=== PATIENT | female | born 1990 | race Caucasian/White ===

== ENCOUNTER 2023-01-02 19:36 | Emergency (ER) | payer OTHER ==
[2023-01-02] MEDS ORDERED: SODIUM CHLORIDE 0.9% 1,000 ML IV STA ×2 (19:57)
[2023-01-02] MEDS ORDERED: SODIUM CHLORIDE 0.9% 500 ML 500 ML IV STA (19:57)
--- NOTE | 2023-01-02 19:58 | ED ---
Weakness HPI - General Chief complaint: Weakness Stated complaint: Altered Mental Status, Overdose Time Seen by Provider: 01/02/23 19:48 Source: patient, EMS, RN notes reviewed, old records reviewed Mode of arrival: EMS Limitations: no limitations - History of Present Illness Initial comments: This is a 32-year-old female to the emergency department today. She presents today for evaluation regards to low heart rate. Persistent bradycardia here in the ER. Patient is bradycardic here in the ER does admit to taking significant, Klonopin prior to arrival. Patient went to check him to [place] for rehabilitation and was noted to low heart rate for admission. Patient is not homicidal or suicidal. Patient was sent to ER from [place] for evaluation MD Complaint: generalized weakness (Bradycardia), lack of energy (Patient did take Klonopin) Location: generalized Severity: moderate Severity scale (1-10): 6 Consistency: constant Improves with: none Context: history of similar Associated Symptoms: denies other symptoms - Related Data Home Medications Medication Instructions Recorded Confirmed Buprenorphine/Naloxone 8Mg/2Mg 1 film SL BID 01/02/23 01/02/23 [Suboxone 8-2Mg Film] cloNIDine HCL 0.2 mg PO TID 01/02/23 01/02/23 clonazePAM [Klonopin ODT] 0.25 mg PO DAILY PRN 01/02/23 01/02/23 Allergies Allergy/AdvReac Type Severity Reaction Status Date / Time No Known Allergies Allergy Verified 01/02/23 21:46 Review of Systems ROS Statement: Those systems with pertinent positive or pertinent negative responses have been documented in the HPI. ROS Other: All systems not noted in ROS Statement are negative. Past Medical History Past Medical History: Hypertension Smoking Status: Current every day smoker Past Alcohol Use History: None Reported Past Drug Use History: None Reported General Exam Limitations: no limitations General appearance: alert, in no apparent distress Head exam: Present: atraumatic, normocephalic, normal inspection Eye exam: Present: normal appearance, PERRL, EOMI. Absent: scleral icterus, conjunctival injection, periorbital swelling ENT exam: Present: normal exam, mucous membranes moist Neck exam: Present: normal inspection. Absent: tenderness, meningismus, lymphadenopathy Respiratory exam: Present: normal lung sounds bilaterally. Absent: respiratory distress, wheezes, rales, rhonchi, stridor Cardiovascular Exam: Present: regular rate, normal rhythm, normal heart sounds. Absent: systolic murmur, diastolic murmur, rubs, gallop, clicks GI/Abdominal exam: Present: soft, normal bowel sounds. Absent: distended, tenderness, guarding, rebound, rigid Extremities exam: Present: normal inspection, full ROM, normal capillary refill. Absent: tenderness, pedal edema, joint swelling, calf tenderness Back exam: Present: normal inspection Neurological exam: Present: alert, oriented X3, CN II-XII intact Psychiatric exam: Present: normal affect, normal mood Skin exam: Present: warm, dry, intact, normal color. Absent: rash Course Vital Signs 01/02/23 01/02/23 01/02/23 19:39 20:11 20:20 Temperature 97.2 F L Pulse Rate 38 L 40 L 45 L Respiratory 16 Rate Blood Pressure 135/87 135/87 138/102 O2 Sat by Pulse 100 96 98 Oximetry 01/02/23 01/02/23 01/02/23 20:51 20:55 21:00 Temperature Pulse Rate 41 L 40 L Respiratory 16 16 Rate Blood Pressure 143/88 143/88 O2 Sat by Pulse 98 99 Oximetry 01/02/23 01/02/23 01/02/23 21:20 21:40 21:58 Temperature Pulse Rate 36 L 44 L 40 L Respiratory 18 Rate Blood Pressure 170/102 179/118 170/118 O2 Sat by Pulse 100 100 100 Oximetry 01/02/23 01/02/23 01/02/23 22:00 22:20 22:40 Temperature Pulse Rate 39 L 40 L Respiratory Rate Blood Pressure 159/114 171/104 152/96 O2 Sat by Pulse 99 97 98 Oximetry 01/02/23 01/02/23 01/02/23 23:00 23:20 23:40 Temperature Pulse Rate 42 L 42 L 44 L Respiratory Rate Blood Pressure 145/91 139/90 138/87 O2 Sat by Pulse 96 96 96 Oximetry 01/03/23 01/03/23 01/03/23 00:00 00:15 00:20 Temperature Pulse Rate 44 L 47 L 53 L Respiratory Rate Blood Pressure 141/104 138/92 139/94 O2 Sat by Pulse 96 95 Oximetry 01/03/23 01/03/23 01/03/23 00:40 01:00 01:20 Temperature Pulse Rate 54 L 61 60 Respiratory Rate Blood Pressure 145/88 149/103 155/104 O2 Sat by Pulse 95 94 L 94 L Oximetry 01/03/23 01/03/23 01/03/23 01:40 02:00 02:20 Temperature Pulse Rate 60 66 60 Respiratory Rate Blood Pressure 153/105 158/110 169/113 O2 Sat by Pulse 95 95 95 Oximetry 01/03/23 01/03/23 01/03/23 02:40 03:00 04:40 Temperature Pulse Rate 61 65 61 Respiratory 14 Rate Blood Pressure 166/113 173/115 145/102 O2 Sat by Pulse 95 95 95 Oximetry 01/03/23 01/03/23 01/03/23 05:27 08:21 09:50 Temperature 97.5 F L Pulse Rate 65 77 70 Respiratory 16 16 16 Rate Blood Pressure 131/92 127/87 111/82 O2 Sat by Pulse 96 98 97 Oximetry - Reevaluation(s) Reevaluation #1: 01/02/23 21:44 Medical record is reviewed Reevaluation #2: 01/02/23 21:44 Patient has no change in improvement of Narcan Reevaluation #3: 01/02/23 21:44 We will allow patient to arouse here in the emergency room, she remains not homicidal or suicidal but is improving and waking up Reevaluation #4: 01/02/23 21:44 Was pt. sent in by a medical professional or institution (, PA, LEAD SETTER, urgent care, hospital, or penitentiary...) When possible be specific @ -no Did you speak to anyone other than the patient for history (EMS, parent, family, police, friend...)? What history was obtained from this source @ -no Did you review nursing and triage notes (agree or disagree)? Why? @ -agree Are old charts reviewed (outside hosp., previous admission, EMS record, old EKG, old radiological studies, urgent care reports/EKG's, penitentiary records)? Report findings @ -yes Differential Diagnosis (chest pain, altered mental status, abdominal pain women, abdominal pain men, vaginal bleeding, weakness, fever, dyspnea, syncope, headache, dizziness, GI bleed, back pain, seizure, CVA, palpatations, mental health, musculoskeletal)? @ -prior EKG interpreted by me (3pts min.). @ -yes X-rays interpreted by me (1pt min.). @ -no CT interpreted by me (1pt min.). @ -no U/S interpreted by me (1pt. min.). @ -no What testing was considered but not performed or refused? (CT, X-rays, U/S, labs)? Why? @ -none What meds were considered but not given or refused? Why? @ -none Did you discuss the management of the patient with other professionals (professionals i.e. , PA, LEAD SETTER, lab, RT, psych nurse, adoption social worker, transportation associate, teacher, aoc director combat plans officer, transplant case manager)? Give summary @ -no Was smoking cessation discussed for >3mins.? @ -no Was critical care preformed (if so, how long)? @ -no Were there social determinants of health that impacted care today? How? (Homelessness, low income, unemployed, alcoholism, drug addiction, transportation, low edu. Level, literacy, decrease access to med. care, longterm, rehab)? @ -none Was there de-escalation of care discussed even if they declined (Discuss DNR or withdrawal of care, Hospice)? DNR status @ -no What co-morbidities impacted this encounter? (DM, HTN, Smoking, COPD, CAD, Cancer, CVA, ARF, Chemo, Hep., AIDS, mental health diagnosis, sleep apnea, morbid obesity)? @ -none Was patient admitted / discharged? Hospital course, mention meds given and route, prescriptions, significant lab abnormalities, going to OR and other pertinent info. @ - 32 female to the emergency department for evaluation. Patient resents today for evaluation of taking too much Klonopin, accidental overdose. Not homicidal or suicidal. Discharge Undiagnosed new problem with uncertain prognosis? @ -no Drug Therapy requiring intensive monitoring for toxicity (Heparin, Nitro, Insulin, Cardizem)? @ -no Were any procedures done? @ -no Diagnosis/symptom? @ -Accidental drug overdose Acute, or Chronic, or Acute on Chronic? @ -Acute Uncomplicated (without systemic symptoms) or Complicated (systemic symptoms)? @ -Complicated Side effects of treatment? @ -no Exacerbation, Progression, or Severe Exacerbation? @ -exacerbation Poses a threat to life or bodily function? How? (Chest pain, USA, MA, pneumonia, PE, COPD, DKA, ARF, appy, cholecystitis, CVA, Diverticulitis, Homicidal, Suicidal, threat to staff... and all critical care pts) @ -no EKG Findings - EKG Comments: EKG Findings:: EKG is bradycardia 39 DE 135 QRS 93 QTC 378 - EKG Results: EKG: interpreted by [facility] Medical Decision Making - Medical Decision Making 32 female to the emergency department for evaluation. Patient resents today for evaluation of taking too much Klonopin, accidental overdose. Not homicidal or suicidal. - Lab Data Result diagrams: 01/02/23 20:44 01/02/23 20:44 Lab Results 01/02/23 01/02/23 01/02/23 Range/Units 20:44 20:44 20:44 WBC 5.8 (3.8-10.6) k/uL RBC 4.50 (3.80-5.40) m/uL Hgb 13.6 (11.4-16.0) gm/dL Hct 40.0 (34.0-46.0) % MCV 89.0 (80.0-100.0) fL MCH 30.2 (25.0-35.0) pg MCHC 33.9 (31.0-37.0) g/dL RDW 13.3 (11.5-15.5) % Plt Count 192 (150-450) k/uL MPV 7.7 Neutrophils % 52 % Lymphocytes % 38 % Monocytes % 5 % Eosinophils % 3 % Basophils % 1 % Neutrophils # 3.0 (1.3-7.7) k/uL Lymphocytes # 2.2 (1.0-4.8) k/uL Monocytes # 0.3 (0-1.0) k/uL Eosinophils # 0.2 (0-0.7) k/uL Basophils # 0.1 (0-0.2) k/uL PT 11.6 (9.0-12.0) sec INR 1.1 (<1.2) APTT 26.2 (22.0-30.0) sec Sodium 136 L (137-145) mmol/L Potassium 4.5 (3.5-5.1) mmol/L Chloride 102 (98-107) mmol/L Carbon Dioxide 26 (22-30) mmol/L Anion Gap 8 mmol/L BUN 9 (7-17) mg/dL Creatinine 0.54 (0.52-1.04) mg/dL Est GFR (CKD-EPI)AfAm >90 (>60 ml/min/1.73 sqM) Est GFR (CKD-EPI)NonAf >90 (>60 ml/min/1.73 sqM) Glucose 123 H (74-99) mg/dL Plasma Lactic Acid Mario (0.7-2.0) mmol/L Calcium 9.5 (8.4-10.2) mg/dL Phosphorus 3.9 (2.5-4.5) mg/dL Magnesium 1.8 (1.6-2.3) mg/dL Total Bilirubin 1.7 H (0.2-1.3) mg/dL AST 26 (14-36) U/L ALT 13 (4-34) U/L Alkaline Phosphatase 63 (38-126) U/L Troponin I (0.000-0.034) ng/mL NT-Pro-B Natriuret Pep 131 pg/mL Total Protein 7.1 (6.3-8.2) g/dL Albumin 4.1 (3.5-5.0) g/dL Salicylates <1.0 mg/dL Acetaminophen <10.0 ug/mL Serum Alcohol <10 mg/dL 01/02/23 01/02/23 Range/Units 20:44 20:44 WBC (3.8-10.6) k/uL RBC (3.80-5.40) m/uL Hgb (11.4-16.0) gm/dL Hct (34.0-46.0) % MCV (80.0-100.0) fL MCH (25.0-35.0) pg MCHC (31.0-37.0) g/dL RDW (11.5-15.5) % Plt Count (150-450) k/uL MPV Neutrophils % % Lymphocytes % % Monocytes % % Eosinophils % % Basophils % % Neutrophils # (1.3-7.7) k/uL Lymphocytes # (1.0-4.8) k/uL Monocytes # (0-1.0) k/uL Eosinophils # (0-0.7) k/uL Basophils # (0-0.2) k/uL PT (9.0-12.0) sec INR (<1.2) APTT (22.0-30.0) sec Sodium (137-145) mmol/L Potassium (3.5-5.1) mmol/L Chloride (98-107) mmol/L Carbon Dioxide (22-30) mmol/L Anion Gap mmol/L BUN (7-17) mg/dL Creatinine (0.52-1.04) mg/dL Est GFR (CKD-EPI)AfAm (>60 ml/min/1.73 sqM) Est GFR (CKD-EPI)NonAf (>60 ml/min/1.73 sqM) Glucose (74-99) mg/dL Plasma Lactic Acid Mario 0.9 (0.7-2.0) mmol/L Calcium (8.4-10.2) mg/dL Phosphorus (2.5-4.5) mg/dL Magnesium (1.6-2.3) mg/dL Total Bilirubin (0.2-1.3) mg/dL AST (14-36) U/L ALT (4-34) U/L Alkaline Phosphatase (38-126) U/L Troponin I <0.012 (0.000-0.034) ng/mL NT-Pro-B Natriuret Pep pg/mL Total Protein (6.3-8.2) g/dL Albumin (3.5-5.0) g/dL Salicylates mg/dL Acetaminophen ug/mL Serum Alcohol mg/dL - EKG Data -: EKG Interpreted by Me Disposition Clinical Impression: Accidental overdose, Benzodiazepine abuse Disposition: HOME SELF-CARE Condition: Fair Instructions (If sedation given, give patient instructions): Benzodiazepine Abuse (ED), Benzodiazepine Overdose (ED) Is patient prescribed a controlled substance at d/c from ED?: No Referrals: None,Stated [Primary Care Provider] - 1-2 days Time of Disposition: 09:00
[2023-01-02] MEDS ORDERED: NALOXONE 0.4 MG/ML 1 ML VIAL IVP STA (20:37)
[2023-01-02 21:00] LABS: Basophils # (A) 0.1 k/uL (0-0.2); Basophils % (A) 1 %; Eosinophils # (A) 0.2 k/uL (0-0.7); Eosinophils % (A) 3 %; HGB 13.6 gm/dL (11.4-16.0); Lymphocytes # (A) 2.2 k/uL (1.0-4.8); Lymphocytes % (A) 38 %; MCH 30.2 pg (25.0-35.0); MCHC 33.9 g/dL (31.0-37.0); Mean Platelet Volume 7.7; Monocytes # (A) 0.3 k/uL (0-1.0); Monocytes % (A) 5 %; Neutrophils % (A) 52 %; Platelet Count 192 k/uL (150-450); RDW 13.3 % (11.5-15.5); WBC 5.8 k/uL (3.8-10.6)
[2023-01-02 21:21] LABS: INR 1.1 (<1.2); Partial Thromboplastin Time 26.2 sec (22.0-30.0); Prothrombin Time 11.6 sec (9.0-12.0)
[2023-01-02 21:39] LABS: ALT 13 U/L (4-34); Acetaminophen <10.0 ug/mL; African American GFR (CKD) >90 (>60 ml/min/1.73 sqM); Albumin 4.1 g/dL (3.5-5.0); Alcohol <10 mg/dL; Anion Gap 8 mmol/L; Blood Urea Nitrogen 9 mg/dL (7-17); Calcium 9.5 mg/dL (8.4-10.2); Carbon Dioxide 26 mmol/L (22-30); Chloride 102 mmol/L (98-107); Glucose 123 mg/dL (74-99); Non-African American GFR(CKD) >90 (>60 ml/min/1.73 sqM); Salicylate <1.0 mg/dL; Sodium 136 mmol/L (137-145); Total Bilirubin 1.7 mg/dL (0.2-1.3); Total Protein 7.1 g/dL (6.3-8.2)
[2023-01-02 21:47] LABS: NT-Pro-B-Type Natriuretic Pept 131 pg/mL
[2023-01-02 22:12] LABS: AST 26 U/L (14-36); Alkaline Phosphatase 63 U/L (38-126); Magnesium 1.8 mg/dL (1.6-2.3); Phosphorus 3.9 mg/dL (2.5-4.5); Potassium 4.5 mmol/L (3.5-5.1)
[2023-01-03 05:28] VITALS: RESP 16
[2023-01-03 10:17] VITALS: BP 111/82; PULSE 70; TEMP 97.5
== END 2023-01-03 09:50 | disposition home or self-care (01) ==
LOC: EC 19:36
DX: T42.4X1A Poisoning by benzodiazepines, accidental (unintentional), initial encounter (principal); F13.10 Sedative, hypnotic or anxiolytic abuse, uncomplicated; I10 Essential (primary) hypertension; F17.200 Nicotine dependence, unspecified, uncomplicated; Z79.899 Other long term (current) drug therapy
CPT/HCPCS: 36415; 93005; 83880; 80053; 83605; 83735; 84100; 84484; 85025; 85610; 85730; 80143; 80179; 99285; 96374; 96361 ×13; G0480; J2310; 80320